=== PATIENT | male | born 1985 | race Caucasian/White ===

== ENCOUNTER 2020-05-11 09:33 | Emergency (ER) | payer OTHER ==
[~2020-05-11] VITALS: Ht 172.7 cm; Wt 72.6 kg
[2020-05-11 09:42] VITALS: BP 164/105
--- NOTE | 2020-05-11 10:00 | NUR ---
34 Y/O M BIBA WITH C/C OF NECK PAIN. PT STATES HE HAS BEEN EXPERIENCING NECK PAIN X 2 MONTHS AFTER PORT INSERTION, AND WORSEN THIS MORNING DURING HIS DIALYSIS TREATMENT. PT STATES BILATERAL NECK PAIN 9/10, DULL, INTERMITTENT, NON-RADIATING. PT STATES HE WAS SEEN AT [place] AND [facility] AND WAS TOLD IT WAS RELATED TO STRESS. PT DENIES FEVER, CHILLS, N/V, CHEST PAIN, SHORTNESS OF BREATH. PT PRESENTS WITH NO OBVIOUS DISTRESS AT THIS TIME. EQUAL CHEST RISE AND FALL. BED LOCKED AT LOWEST POSITION, SIDE RAILS X 2. CALL LIGHT WITHIN REACH. PMH: ESRD, HTN MEDS: ALLERGIES: BENADRYL, ANCEF, VANCOMYCIN
--- NOTE | 2020-05-11 10:05 | NUR ---
ERMD AT BEDSIDE
[2020-05-11] MEDS ORDERED: KETOROLAC 60 MG/2 ML VIAL IM ONE (10:10)
[2020-05-11 10:22] VITALS: BP 154/98
--- NOTE | 2020-05-11 10:22 | NUR ---
Patient discharged with v/s stable. Written and verbal after care instructions given and explained. Patient alert, oriented and verbalized understanding of instructions. Ambulatory with steady gait. All questions addressed prior to discharge. ID band removed. Patient advised to follow up with PMD. Rx of Motrin, Atarax given. Patient educated on indication of medication including possible reaction and side effects. Opportunity to ask questions provided and answered.
== END 2020-05-11 10:22 | disposition home or self-care (01) ==
LOC: MED 09:33
DX: M54.2 Cervicalgia (principal); F41.9 Anxiety disorder, unspecified; I10 Essential (primary) hypertension; Z88.1 Allergy status to other antibiotic agents; Z88.8 Allergy status to other drugs, medicaments and biological substances
CPT/HCPCS: 99283